=== PATIENT | male | born 1935 | race Caucasian/White ===

== ENCOUNTER 2016-10-09 09:55 | Inpatient (IN) | payer MEDICARE ==
--- NOTE | 2016-10-04 12:26 | PCM.ANEPRE ---
Anesthesia Pre-Op Review Reason for Review: Cardiac concerns, Hx JOSH does not use C-PAP Anesthesia Recommendations: Proceed with Procedure Additional Comments Patient with history of CAD/ s/p CABG/AVR. Also chronic atrial fibrillation with pacemaker. Patient is reportedly positive for JOSH but declines CPAP. Patient underwent echo on 09/05/2016: LVEF = 45-50%, moderated AI but well place bioprosthetic valve in the aortic position. He has been seen and cleared for surgery by his psychodramatist Dr. Simon. Okay to proceed pending evaluation on day of surgery. Chart Reviewed by: Gabriel Mack MD Oct 04, 2016 12:26
[~2016-10-09] VITALS: Ht 180.3 cm; Wt 77.1 kg
[2016-10-09] VITALS (12 sets, daily range): BP systolic 143–176; BP diastolic 64–96; PULSE 60–62; RESP 14–18; O2SAT 95–100
[~2016-10-09 09:55] MED LIST: ACET-2605 PO; ASPI325T32 PO; ATOR20TA PO; Acetaminophen IV 1,000 MG in IV Premix 1 EACH IV ONE; Bupivacaine Liposome 1.3% 20 mL Inj INFILTRATE ONE; CeFAZolin Inj 2 GM in IV Premix 1 EACH IV SCH; DIGO250T72 PO; Gentamicin 40 mg/mL 2 mL Inj INJ ONE; Hip/Knee Infiltration Cocktail INFILTRATE ONE; Lactated Ringer's 1,000 ML IV SCH; METO50TA3 PO; Tranexamic Acid 100 mg/mL 10 mL Inj IV SCH; WARF5TAB7 PO; WARF7.5T4 PO; [UNRECOGNIZED DRUG - REMARK] XX ONE
[2016-10-09] MEDS ORDERED: Lactated Ringer's 1,000 ML IV ONE (10:47)
[2016-10-09 11:00] LABS: INR 1.14 ratio
[2016-10-09] MEDS ORDERED: Bupivacaine Liposome 1.3% 20 mL Inj ONE (11:58)
[2016-10-09] MEDS ORDERED: 0.9% Sodium Chloride 100 ML ONE ×2 (11:58→11:59)
[2016-10-09] MEDS ORDERED: Tranexamic Acid 100 mg/mL 10 mL Inj IV SCH (12:29)
--- NOTE | 2016-10-09 12:32 | PCM.HPANE ---
Patient Data Surgeon Admitting Provider: Attending Provider:Toni Kahn MD Primary Care Physician:Hanh Van MD Other Provider:Ede Linares Anesthesia Reason for Visit Left Shoulder Arthritis Ht/WT & BMI Height (Feet): 5 Height (Inches): 11 Weight (Kilograms): 78.1 Body Mass Index 24.00 Allergies Coded Allergies: No Known Allergies (Unverified , 10/04/16) Past Anesthesia History Anesthesia History: Positive for:: Anesthesia Reactions (Nausea and dizzyness) , Denies:: Abnormal Airway, Difficult Intubation, Fam Anesthesia Reaction, Fam Malignant Hypertherm, Malignant Hyperthermia Diabetes History Hx Diabetes?: No MRSA MRSA: No Medications Blood Thinner: Aspirin and Coumadin Last Dose Blood Thinner: Oct 03, 2016 Hypertension Medication: Yes (Metoporolol) Home Meds Incl Beta Raul: Yes (metoprolol) Date Beta Raul Taken: Oct 09, 2016 Time Beta Raul Taken: 0600 Reported Medications Acetaminophen/Diphenhydramine (Tylenol Pm Ex-Strength Caplet)500 Mg-25 Mg Tablet1 Each PO 10/04/16 Warfarin Sodium 7.5 Mg Tablet7.5 Mg PO 30 Days Ref 0 10/04/16 Warfarin Sodium 5 Mg Tablet5 Mg PO DAILY 30 Days Ref 0 10/04/16 Metoprolol Tartrate 50 Mg [id number] Mg PO BID 30 Days Ref 0 10/04/16 Digoxin 250 Mcg [id number] Mcg PO DAILY #30 TABLET Ref 0 10/04/16 Atorvastatin (Lipitor)20 Mg [id number] Mg PO DAILY Ref 0 10/04/16 Aspirin 325 Mg [id number] Mg PO #1 BOTTLE 10/04/16 History History of ENT Problems?: No HEENT History: Positive for:: Hearing Problem (Speak loud and look him face) Denies:: Abnormal Airway Cataracts Difficult Intubation Dysphagia Glaucoma Sinus Problem TMJ Denture Type: None Teeth Condition: Within Normal Limits Hx of Heart Problems?: Yes Cardiovascular History: Positive for:: Atrial Fibrillation Cardiac Surgery (S/P CABG x 1 02/2010) Chest Pain Coronary Artery Disease Heart Murmur Irregular Heartbeat Valvular Heart Disease Denies:: AICD Abdominal Aortic Aneurism Congestive Heart Failure Edema Hypertension Pacemaker Peripheral Vascular Rheumatic Fever Thrombophlebitis Hx of Respiratory Problem?: Yes Respiratory History: Positive for:: Chest Surgery Denies:: Asthma COPD Cough Dyspnea Emphysema Hemoptysis Oxygen Administration Pneumonia Pulmonary Embolism Tuberculosis Use of C-PAP Machine (stopped using 2013 pt did not think he needed it) Use of Inhalers / NEBS Hx Neurologic Problems?: Yes Neurological History: Positive for:: Dizziness Headaches (continual headache started 03/06/2003) Denies:: Alzheimer's Disease CVA Dementia Multiple Sclerosis Parkinson's Disease Peripheral Neuropathy Seizures TIA Hx of GI Problems?: No Gastrointestinal History: Denies:: Cirrhosis Diverticulitis Gall Bladder Disease Gastroesphageal Reflux Gastrointestinal Bleeding Heartburn Hepatitis Hiatal Hernia Liver Disease Rectal Bleeding Hx of Problems?: No Genitourinary History: Denies:: HX of Hemodialysis Kidney Stones Urinary Tract Infection HX of Peritoneal Dialysis: No Other Pertinent History: History of bladder cancer treated with Myotmycin Male Hx: Denies:: Prostate Problems Scrotal Mass Testicular Surgery Skin History: Denies:: History Skin Disorders? Pressure Ulcers Hx Musculoskeletal Problems?: Yes Musculoskeletal History: Positive for:: Back Injury (C3-6 "trimmed", low back 2000) Osteoarthritis Denies:: Degenerative Joint Fibromyalgia Joint Replacement Musculoskeletal Trauma Myasthenia Gravis Rheumatoid Arthritis Systemic Lupus Hx of Psycho/Social Problems?: No Psycho Social History: Denies:: Anxiety Bipolar Disorder Hx Depression Suicide Attempt Hx Surgeries?: Yes (August 23, cysto) Other History: Positive for:: Cancer (Hx of Bladder) Hospitalization (August 2015) Denies:: Endocrine Disease Thyroid Disease History Blood Transfusions: Positive for:: Accept Blood Products? Denies:: Blood Transfusions Hx Diabetes: No Hx Alcohol Use: NoHx Substance Use: No Stop/Bang S-Snoring: Do You Snore Loudly: No T-Tired: feel tired, fatigued: Yes O-Obsered: Observed not breath: No P-Blood Pressure: treated: No B- Body Mass Index > 35 kg/m2: No A- Age over 50: Yes N- Neck Large Circumference: No G- Gender Male: Yes JOSH Total Score: 3 Risk Assessment Category Category 1A: Patient has history of documented sleep apnea, and HAS NOT received any narcotic, sedative or anesthesia administration during this stay. Category 1B: Patient has history of documented sleep apnea, and HAS received any narcotic , sedative or anesthesia administration during this stay Category 2: Patient has SUSPECTED Obstructive Sleep Apnea, and HAS received any narcotic , sedative or anesthesia administration during this stay. Category 3: Patient has SUSPECTED Obstructive Sleep Apnea and HAS NOT received narcotic, sedative or anesthesia administration during this stay. Category 4: Outpatient in Procedural Areas with known sleep apnea or who screen positive for High Risk via the STOP/BANG questionnaire. Exam Exam Vital Signs Vital Signs Date Time Temp Pulse Resp B/P Pulse Ox O2 Delivery O2 Flow Rate FiO2 10/09/16 10:48 36.5 60 18 161/86 99 Room Air General Appearance: Alert, Oriented X3, Cooperative, No Acute Distress HEENT/AIRWAY: MP 2, Neck Movement (decreased neck mobility from C3-C6 surgery) , Mouth Opening (3 FBMO) Lungs: Clear to Auscultation, Normal Air Movement Heart: Other (paced, A fib) Meds/Labs/Diagnostics Admission Meds Current Medications Lactated Ringer's (Lr) 1,000 ml @ ud STK-MED ONCE IV Last administered on t 10:47; Start 10/09/16 at 10:47; Stop 10/09/16 at 10:48; Status DC Labs Test 10/09/16 10:30 Plan Impression Patient chart reviewed, patient interviewed and anesthestic plan with risks, benefits, and alternatives discussed, and informed consent obtained. NPO per Anesth. Guidelines: Yes ASA Physical Status: ASA3 Severe Disease (CAD/ A fib) Anesthetic Plan: GA, Regional Block (Left shoulder block for postoperative pain control ) Bene/Risks/Altern/Consents: Yes HP Complete Prior to Induction: Yes Matt Bobo MD Oct 09, 2016 10:59
[2016-10-09] MEDS ORDERED: Gentamicin 40 mg/mL 2 mL Inj INJ ONE (13:09)
[2016-10-09] MEDS ORDERED: Bacitracin 50,000 unit Inj IRRIGATION ONE ×2 (13:12→14:57)
[2016-10-09] MEDS ORDERED: Lactated Ringer's 1,000 ML IV SCH (13:22)
[2016-10-09] MEDS ORDERED: Lactated Ringer's 500 ML IV PRN (13:22)
[2016-10-09] MEDS ORDERED: Phenylephrine 10,000 mCg/mL Inj IVPUSH PRN (13:25)
[2016-10-09] MEDS ORDERED: fentaNYL-PF 50 mCg/mL 2 mL Inj IVPUSH PRN (13:25)
[2016-10-09] MEDS ORDERED: Dexamethasone 4 mg/mL Inj IVPUSH PRN (13:25)
[2016-10-09] MEDS ORDERED: Labetalol 5 mg/mL 4 mL Inj IV PRN (13:25)
[2016-10-09] MEDS ORDERED: MetoCLOpramide 5 mg/mL 2 mL Inj IVPUSH PRN (13:25)
[2016-10-09] MEDS ORDERED: Ondansetron 2 mg/mL 2 mL Inj IVPUSH PRN ×2 (13:25→15:50)
[2016-10-09] MEDS ORDERED: EPHEDrine Sulfate 50 mg/mL Inj IVPUSH PRN (13:25)
[2016-10-09] MEDS ORDERED: HYDROmorphone 1 mg/mL Inj IVPUSH PRN (13:25)
[2016-10-09] MEDS ORDERED: Tranexamic Acid 100 mg/mL 10 mL Inj TOPICAL ONE (14:53)
--- NOTE | 2016-10-09 15:47 | PCM.ANEP1 ---
Post Anesthesia PACU Phase 1 Assessment Vital Signs Vital Signs Date Time Temp Pulse Resp B/P Pulse Ox O2 Delivery O2 Flow Rate FiO2 10/09/16 10:48 36.5 60 18 161/86 99 Room Air Anesthetic Administered: GA, Regional Block Level of Alertness: Sleeping, hard to arouse FORREST's with Equal Strength: Yes Pain: No Nausea or Vomiting: No CV Function & Hydration Stable: Yes Airway Device: Oxygen Delivery: Simple Mask Lungs: Clear to Auscultation, Normal Air Movement PACU Phase 2 Assessment Patient Instructions Provided: Yes Rasta Warner MD Oct 09, 2016 15:47
[2016-10-09] MEDS ORDERED: Polyethylene Glycol (PEG) 17 Gm Powder PO PRN (15:50)
[2016-10-09] MEDS ORDERED: Magnesium Hydroxide 10 mL Oral Concentration PO PRN (15:50)
[2016-10-09] MEDS ORDERED: diphenhydrAMINE 25 mg Capsule PO PRN (15:50)
[2016-10-09] MEDS ORDERED: Sodium Biphos-Phos 133 mL Enema RECTAL PRN (15:50)
[2016-10-09] MEDS: Sodium Chloride LOK Flush 10 mL Syringe IV SCH (16:30)
--- NOTE | 2016-10-09 16:54 | DRSVH ---
PROCEDURE: X-RAY LEFT SHOULDER, MINIMUM TWO VIEWS ([id number]) INDICATIONS: post op TECHNIQUE: 2 views of the shoulder were acquired. COMPARISON: 07/09/2016 FINDINGS: Bones: Postoperative changes since last exam include total shoulder arthroplasty with components in e xpected alignment. Soft tissues: No suspicious soft tissue calcifications. Sling artifacts are present. IMPRESSION: Acute postoperative changes total left shoulder arthroplasty Dictated by: Francesco Manuel M.D. on 10/09/2016 at 16:50 Approved by: Francesco Manuel M.D. on 10/09/2016 at 16:51
--- NOTE | 2016-10-09 17:07 | PCM.ORTHOP ---
Orthopedic Operative Report Date of Service: Oct 09, 2016 Pre Operative Diagnosis Left shoulder rotator cuff arthropathy Post Operative Diagnosis Same Procedure Left reverse total shoulder arthroplasty, open biceps tenodesis Surgeon Surgeon: Toni Kahn MD Assistants: Vikram Ridley Indication for Procedure Left shoulder rotator cuff arthropathy Findings Per dictation Details of Procedure Implant:[employer] Reverse fracture system:12 CaP coated humeral stem, large glenoid baseplate,. 42+2 humeral insert, size 42+4 glenosphere, central non-locking screw size 6.5X35 mm, peripheral locking screw 30 mm, peripheral nonlocking screw 4.5X36mm Patient Status: Patient was extubated and taken to recovery room in stable condition. Indications: Anton Fallon is an 80 year old male with shoulder pain with rotator cuff arthropathy and glenohumeral arthritis. The patient was offered conservative treatments versus surgical intervention given the severity of the injury and the patient opted for surgery. A clear explanation was given to the patient regarding the condition present, and the available conservative and surgical options. It was emphasized that the risks and benefits of surgery include but are not limited to infection, wound healing problems, damage to adjacent structures such as nerves, blood vessels and tendons, terminal press operator disability and pain, arthritis, hypersensitivity, deep vein thrombosis, pulmonary embolism, broken hardware, failure of surgery, need for further procedures at time of surgery or later, cast related problems, loss of limb or life. The patient was given an explanation and the patient voiced understanding of what to expect after the procedure or surgery, the limitations in activities of daily living, the likely duration for post operative recovery and the instructions that are to be followed. At the end the patient was invited to seek clarification or ask further questions but there were none. The patient voiced understanding of the entire consultation. Description of Procedure: Patient was taken to operating room and transferred to operating table in supine position. Time out was performed with both anesthesia and orthopaedics faculty present to confirm details of case to be performed. After time out performed, patient placed under general anesthesia and endotracheal tube secured into place. Once endotracheal tube secured, the patient was placed into the modified beach-chair position at about 40 degrees of flexion. Patient position was again checked to ensure all bony prominences adequately padded. The left arm was prepped and draped in the usual sterile fashion to the level of the neck. A standard deltopectoral incision was made beginning immediately above the coracoid process and extending distally and laterally. The deltoid muscle was split through the interval being carefully not to release any deltoid along the clavicle or humerus. The proximal one-third of the pectoralis major muscle was incised off the humerus for better exposure. The supraspinatus and infraspinatus muscles were intact and still attached to the fractured greater tuberosity. The subscapularis was intact and also still attached to the fractured lesser tuberosity. It was incised through the tendinous portion just medial to the lesser tuberosity and tagged with 2-0 Fiberwire. The arm was externally rotated to expose the humeral head while the anterior humeral circumflex vessels ("3 sisters") were identified, ligated and then cut protecting the axillary nerve throughout inferior and medial to the vessels. The long head of the biceps was identified along the bicipital groove, incised at its origin and tagged for later tenodesis to the pectoralis major A barge pilot hole was then made with a 4 mm drill through the humeral head along the axis of the humeral shaft just lateral to the head's articular surface and just posterior to the bicipital groove. The 6 mm trochar pointed reamer was then inserted with continued circumferential reaming in 1 mm increments until light cortical contact was achieved with the appropriately sized reamer. The intramedullary resection guide was assembled and the version control alex was placed to allow for 30 degrees retroversion. The neck cut was verified with a bat wing. Two threaded Steinmann pins were placed in the resection guide to secure the block to bone and the reamer and guide boom were removed prior to resecting the humeral head with the oscillating saw. We started broaching with the 8 mm broach and ended with the 12 mm broach which solidly fit in the canal and fully seated on the humerus. The broach cover was then used to protect the humerus while attention was turned to the glenoid. Any remaining labrum was removed from the glenoid along with surrounding osteophytes. The glenoid sizer was centered on the glenoid and a 3.2 mm Steinmann pin was inserted with a 10 degree inferior tilt with solid bone purchase. The glenoid was then reamed with the cannulated base plate reamer over the top of the Steinmann pin until a small bone shelf was evident circumferentially. The cannulated trial glenoid baseplate was placed and fully seated. The glenoid baseplate implant was impacted and fully seated. The 6.5 mm central screw was then inserted following removal of the Steinmann with good compression. The surrounding peripheral screw was then drilled with a 2.7 mm drill through the threaded locking guides and then placed. A nonlocking screw was inserted inferiorly and placed first. The glenosphere trial was placed and tested with a good fit. The glenosphere implant was then tamped in place with appropriate offset. The standard humeral tray/bearing were placed and a trial reduction was performed. The patient achieved 80 degrees of external/internal rotation, 110 degrees of abduction, 45 degrees extension and 120 degrees of forward flexion with complete stability. The trail components were removed and the wound was copiously irrigated with 3 liters of normal saline. The stem was inserted followed by impaction of the humeral tray/bearing. The implant was reduced and once again range of motion was found to be 80 degrees of external/ internal rotation, 110 degrees of abduction, 45 degrees extension and 120 degrees of forward flexion with complete stability. The wound was again irrigated. The subscapularis was repaired with drill holes in the humerus prior to implantation of the stem with #2 Fiberwire through previously made bone tunnels. The long head of biceps was tenodesed to the pectoralis major. The deltoid interval was closed with 0 vicryl followed by 2-0 vicryl subcutaneous closure and then monocryl stitches for the skin. Transexamic acid was administered and a local anesthetic cocktail into the skin. Sterile dressings were applied along with a shoulder immobilizer and abduction pillow. The patient was then awoken from anesthesia and extubated, his neurovascular status was intact when checked in PACU. Pt tolerated procedure well and there was no complications. SPORTS MANAGEMENT INTERN SURGEON: During the operation, the services of physician surgical orderly were medically indicated and necessary to provide exposure of the operative site for the surgical procedure and to maintain the limb in a proper position to carry out the operation safely and efficiently. Without the qualified bar assistant being present, it would have extended the operative procedure and made the procedure technically more difficult to perform. Nonweightbearing to affected upper extremity. Please leave sling on at all times. You may remove sling 3 times a day to move the elbow wrist and fingers. Do not move your shoulder. PROM only, IR to body, ER to 0 degrees, FF to 90 degrees, ABD to 0 degrees. Keep your arm at neutral, NO external rotation of the arm, no resisted IR of the arm. Please keep the affected extremity elevated when possible. You may use ice and/or heat as needed for comfort. Follow-up in 2 weeks with me with 2-view xrays and for suture removal and Steri -Strip application. Follow-up with me at 6 weeks. You will have pain medications , medication for constipation and aspirin 81 qdaily X 2 weeks. Grafts, Implants: Implants-See Implant Record Complications There were no periprocedural complications identified. Condition Stable Anesthetic Administered: GA, Regional Block Catheters: None Output, Estimated Blood Loss: 100 Blood Admin during surgery: No Surgical Cast or Splint: Other Surgical Specimen Removed: No Specimen sent to Pathology: No copies to: Toni Kahn MD, Christopher L MD Oct 09, 2016 17:07
[2016-10-09] MEDS ORDERED: Dexamethasone 4 mg/mL Inj ONE (17:34)
[2016-10-09] MEDS ORDERED: Rocuronium 10 mg/mL 5 mL Inj ONE (17:34)
[2016-10-09] MEDS ORDERED: Ondansetron 2 mg/mL 2 mL Inj ONE (17:34)
[2016-10-09] MEDS ORDERED: Propofol 10,000 mCg/mL 20 mL Inj ONE (17:34)
[2016-10-09] MEDS ORDERED: Ketamine 10 mg/mL 20 mL Inj ONE (17:34)
[2016-10-09] MEDS ORDERED: fentaNYL-PF 50 mCg/mL 2 mL Inj ONE (17:34)
[2016-10-09] MEDS ORDERED: Phenylephrine/NS 100 mCg/mL 10 mL Syringe IVPUSH ONE (17:34)
[2016-10-09] MEDS: 0.9% Sodium Chloride 1,000 ML IV SCH (17:52)
[2016-10-09] MEDS: Senna-Docusate 8.6-50 mg Tablet PO SCH (20:02)
[2016-10-09] MEDS: CeFAZolin Inj 2 GM in IV Premix 1 EACH IV SCH (20:07)
[2016-10-10 00:21] VITALS: BP 155/79; PULSE 65; RESP 17; O2SAT 98
[2016-10-10] MEDS: Sodium Chloride LOK Flush 10 mL Syringe IV SCH ×2 (00:30→08:29)
[2016-10-10] MEDS: 0.9% Sodium Chloride 1,000 ML IV SCH ×2 (05:20→11:46)
[2016-10-10] MEDS: CeFAZolin Inj 2 GM in IV Premix 1 EACH IV SCH (05:27)
[2016-10-10 05:30] VITALS: BP 142/74; PULSE 62; RESP 17; O2SAT 96
[2016-10-10 05:34] LABS: BASOPHILS % (AUTO) 0.1 % (0-3); EOSINOPHILS % (AUTO) 0 % (0-5); MONOCYTES % (AUTO) 9.1 % (4-12); Mean Corpuscular Hemoglobin 30.2 pg (27.0-35.0); Mean Corpuscular Volume 90.7 fL (81-100); NEUTROPHILS % (AUTO) 82.3 % (40-74); Platelet Count 184 bil/L (150-400)
[2016-10-10] MEDS: HYDROcodone-APAP 5-325 mg Tablet PO PRN ×2 (06:10→10:25)
[2016-10-10 07:49] VITALS: BP 104/65; PULSE 60; RESP 18; O2SAT 97
[2016-10-10] MEDS: Senna-Docusate 8.6-50 mg Tablet PO SCH (08:34)
[2016-10-10 08:36] VITALS: PULSE 62
--- NOTE | 2016-10-10 11:09 | PCM.PNORTH ---
Subjective Date of Service: Oct 10, 2016 Visit Information: Reason for Visit Left Shoulder Arthritis Surgery/Surgery Date left reverse total shoulder arthroplasty 10/09/2016 Post-Op Day # 1 Date of Admission: Oct 09, 2016 at 17:33 Hospital Day # Subjective Patient has minimal complaints of pain. He has been seen by OT and understands how to don and doff the sling. His is at bedside. Objective Exam Objective Patient is seen sitting up in bed Vital Signs and I/O Vital Sign - Last Date Time Temp Pulse Resp B/P Pulse Ox O2 Delivery O2 Flow Rate FiO2 10/10/16 08:36 62 10/10/16 07:49 36.8 18 104/65 97 Room Air 10/09/16 15:55 10 Intake and Output 10/09/16 10/09/16 10/10/16 Cumulative From/Thru 15:00 23:00 07:00 10/04/16 10:31 - 10/10/16 05:30 Intake Total 1100 ml 850 ml 1751 ml 3701 ml Output Total 100 ml 350 ml 350 ml 800 ml Balance 1000 ml 500 ml 1401 ml 2901 ml Intake Oral 0 ml 650 ml 650 ml IV Total 1100 ml 850 ml 1101 ml 3051 ml Output Urine Total 350 ml 350 ml 700 ml Estimated Blood Loss 100 ml 100 ml # Bowel Movements 0 0 Lab & Micro Results Laboratory Tests Test 10/10/16 05:15 White Blood Count 10.7th/mm3 (3.8-10.1) Red Blood Count 3.98mil/mm3 (4.40-5.80) Hemoglobin 12.0g/dL (13.8-17.2) Hematocrit 36.1% (41.0-50.0) Mean Corpuscular Volume 90.7fL (81-100) Mean Corpuscular Hemoglobin 30.2pg (27.0-35.0) Mean Corpuscular Hemoglobin Concent 33.2% (32.0-37.0) Red Cell Distribution Width 13.9% (12.3-15.4) Platelet Count 184bil/L (150-400) Neutrophils (%) (Auto) 82.3% (40-74) Lymphocytes (%) (Auto) 8.3% (14-46) Monocytes (%) (Auto) 9.1% (4-12) Eosinophils (%) (Auto) 0% (0-5) Basophils (%) (Auto) 0.1% (0-3) Result Diagram: 10/10/16 0515 General Appearance: Alert, Oriented X3, Cooperative, No Acute Distress Extremities: Distal Pulses Palpable Postop Sensory Motor: Distal Motor Intact, Movement in Fingers, Distal Sensation Intact, NVI Distally SURGICAL WOUND : Wound Location/Description Left shoulder: Surgical dressing is clean, dry and intact. No drainage or erythema seen. Catheters: None Assessment & Plan Impression POD #1 left reverse total shoulder arthroplasty Problems: Plan The patient has been seen by occupational therapy and understands how to don and doff the brace. Patient will be discharged home today. Discharge instructions reviewed with the patient Discharged home in stable condition Resume warfarin and aspirin tomorrow. Pain medicine: [place] [hydrocodone/acetaminophen], Activity: Nonweightbearing to affected upper extremity. Please leave sling on at all times. You may remove sling 3 times a day to move the elbow wrist and fingers. No lifting, carrying, pushing, pulling or leaning on the left arm. Do not move your shoulder. NO external rotation of the arm, no resisted IR of the arm. Please keep the affected extremity elevated when possible. You may use ice and/or heat as needed for comfort. Dressing: remove surgical dressing in 3 days, and change with long bandage. Showering: During first week after surgery, cover the wound with plastic to shower. After one week, may shower with the wound uncovered. Change the dressing every 2-3 days or as needed. Follow-up with Dr. Kahn in 2 weeks with x-rays, and at 6 weeks Pain Management: [place] Resuscitation Status: CPR: Attempt Resuscitation SikesHeydi huff PA-C Oct 10, 2016 11:09
--- NOTE | 2016-10-10 11:59 | PCM.DIOPOR ---
OP Ortho Discharge Instruction Dates of Hospitalization Date of Discharge: Oct 10, 2016 Providers Admitting Physician: Toni Kahn MD Primary Care Physician: Hanh Van MD Attending Physician: Toni Kahn MD Diagnosis at Time of Discharge Post operative diagnosis Status post left reverse total shoulder arthroplasty Diet Discharge Diet: No restrictions Activity Activity-General: Elevate & ice extremity Left Upper Extremity: Non-weight bearing Range of motion restrictions: No active motion of left shoulder. Discharge Assist Device: Shoulder Immobilizer Dressing and Incisional Care Dressing Care: Keep dressing clean, dry & intact Hygiene: May shower (see instructions below), DO NOT soak incision under water , NO bathtub, hot tub or whirlpool Additional Instructions Discharge Instructions Dressing: remove surgical dressing in 3 days, and change with long bandage. Change the dressing every 2-3 days or as needed. Showering: During first week after surgery, cover the wound with plastic to shower. After one week, may shower with the wound uncovered. Resume warfarin and aspirin tomorrow. Pain medicine: [place] [hydrocodone/acetaminophen] To prevent constipation, use MiraLax [polyethylene glycol] daily. Start taking it today, once a day in a large glass of water or juice. Use stool softener or laxative if needed. Prune juice is also helpful. Activity: Nonweightbearing to affected upper extremity. Please leave sling on at all times. You may remove sling 3 times a day to move the elbow wrist and fingers. No lifting, carrying, pushing, pulling or leaning on the left arm. Do not move your shoulder. NO external rotation of the arm, no resisted IR of the arm. Please keep the affected extremity elevated when possible. You may use ice and/or heat as needed for comfort. Follow Up Plan Follow Up Plan Follow-up with Dr. Kahn in 2 weeks with x-rays, and at 6 weeks Call your provider for: Fever, Chills, Shortness of breath, Vomitting, Drainage at incision, Wound redness (that is psreading) Heydi Zamora PA-C Oct 10, 2016 11:59
[2016-10-10] MEDS ORDERED: HYDR-4003 PO (12:00)
[2016-10-10] MEDS ORDERED: DOCU-41 PO (12:00)
--- NOTE | 2016-10-14 16:51 | PCM.DC.ORT ---
Discharge Summary Date of Service: Oct 14, 2016 Date of Hospital Admission: Oct 09, 2016 at 17:33 Date of Surgery: Oct 09, 2016 Date of Discharge: Oct 10, 2016 Reason for Hospitalization: Left shoulder arthritis Procedures Performed: Left shoulder reverse total arthroplasty Hospital Course: The patient was admitted to the hospital on 10/09/2016 and underwent the above procedure. The surgeon was Dr. Kahn. Patient tolerated the procedure well was transferred in stable condition. The patient was then [place] [facility] [place]. Pain is managed with [place] 7.5/325 mg. The patient fell to 7.5 mg dose was too high and asked that it be cut back a little bit to 5 mg tablets. Patient was seen by occupational therapy in the morning and instructed him how to don and doff the brace. Discharge instructions were reviewed. Patient had no chest pain, shortness of breath or pain management issues. He is discharged home in stable condition. Diagnosis at Time of Discharge Status post left reverse total shoulder arthroplasty Problems: Disposition: Discharged home in stable condition Additional Information Follow-up in 2 weeks at [facility] with Dr. Kahn, and at 6 weeks Discharge Instructions: Activity-General: Elevate & ice extremity Left Upper Extremity: Non-weight bearing Range of motion restrictions: No active motion of left shoulder. Discharge Assist Device: Shoulder Immobilizer Dressing Care: Keep dressing clean, dry & intact Hygiene: May shower (see instructions below), DO NOT soak incision under water , NO bathtub, hot tub or whirlpool Dressing: remove surgical dressing in 3 days, and change with long bandage. Change the dressing every 2-3 days or as needed. Showering: During first week after surgery, cover the wound with plastic to shower. After one week, may shower with the wound uncovered. Resume warfarin and aspirin tomorrow. Pain medicine: [place] [hydrocodone/acetaminophen] To prevent constipation, use MiraLax [polyethylene glycol] daily. Start taking it today, once a day in a large glass of water or juice. Use stool softener or laxative if needed. Prune juice is also helpful. Activity: Nonweightbearing to affected upper extremity. Please leave sling on at all times. You may remove sling 3 times a day to move the elbow wrist and fingers. No lifting, carrying, pushing, pulling or leaning on the left arm. Do not move your shoulder. NO external rotation of the arm, no resisted IR of the arm. Please keep the affected extremity elevated when possible. You may use ice and/or heat as needed for comfort. Acetaminophen/Diphenhydramine (Tylenol Pm Ex-Strength Caplet) 500 Mg-25 Mg Tablet 1 EACH PO Aspirin (Aspirin) 325 Mg Tablet 325 MG PO Atorvastatin (Lipitor) 20 Mg Tablet 20 MG PO DAILY Digoxin (Digoxin) 250 Mcg Tablet 250 MCG PO DAILY Docusate Sodium (Colace) 100 Mg Capsule 100 MG PO BID PRN PRN For Constipation Hydrocodone-Acetaminophen 5-325 mg (Hydrocodone-Acetaminophen 5-325 mg) 1 Each Tablet 1-2 TABLET PO Q4H PRN PRN For Moderate Pain Metoprolol Tartrate (Metoprolol Tartrate) 50 Mg Tablet 50 MG PO BID Warfarin Sodium (Warfarin Sodium) 5 Mg Tablet 5 MG PO DAILY Warfarin Sodium (Warfarin Sodium) 7.5 Mg Tablet 7.5 MG PO Heydi Zamora PA-C Oct 14, 2016 16:51
== END 2016-10-10 12:37 | disposition home or self-care (01) | DRG 483 ==
LOC: SAS 09:55 → OSC 17:33
PROVIDERS: ADMIT Orthopaedic Surgery; ATTEND Orthopaedic Surgery
PROC: 0RRK00Z Replacement of Left Shoulder Joint with Reverse Ball and Socket Synthetic Substitute, Open Approach (ICD-10-PCS; principal; 2016-10-09 09:45)
DX: M19.012 Primary osteoarthritis, left shoulder (principal); I50.22 Chronic systolic (congestive) heart failure; I48.2 Chronic atrial fibrillation; Z79.01 Long term (current) use of anticoagulants; Z95.0 Presence of cardiac pacemaker; I25.10 Atherosclerotic heart disease of native coronary artery without angina pectoris; M75.122 Complete rotator cuff tear or rupture of left shoulder, not specified as traumatic

== ENCOUNTER 2016-10-15 07:25 | Emergency (ER) | payer MEDICARE ==
[~2016-10-15] VITALS: Ht 180.3 cm; Wt 81.8 kg
[~2016-10-15 07:25] MED LIST changes: -Acetaminophen IV 1,000 MG in IV Premix 1 EACH IV ONE; -Bupivacaine Liposome 1.3% 20 mL Inj INFILTRATE ONE; -CeFAZolin Inj 2 GM in IV Premix 1 EACH IV SCH; +DOCU-41 PO; -Gentamicin 40 mg/mL 2 mL Inj INJ ONE; +HYDR-4003 PO; -Hip/Knee Infiltration Cocktail INFILTRATE ONE; -Lactated Ringer's 1,000 ML IV SCH; -Tranexamic Acid 100 mg/mL 10 mL Inj IV SCH; -[UNRECOGNIZED DRUG - REMARK] XX ONE
--- NOTE | 2016-10-15 07:28 | ED.REPORT ---
HPI-General Illness Date of Service Oct 15, 2016 ED Provider: Spencer Li Patient is an 80 year old male with a hx of afib, cancer, and valvular heart disease on Warfarin who presents to the ED s/p a shoulder reconstruction 6 days ago complaining of SOB. He reports that he developed the hiccups which progressed to SOB onset this morning. Associated symptoms include constipation. He denies cough, sputum, chest pain, vomiting, diarrhea, or any other symptoms. He has restarted warfarin since the surgery. He also takes Digoxin and metoprolol. Nursing Notes Stated Complaint: DIFFICULTY BREATHING Nursing Notes Reviewed: Yes Allergies: Coded Allergies: No Known Allergies (Unverified , 10/04/16) Scheduled Atorvastatin (Lipitor) 20 Mg Tablet 20 MG PO DAILY Digoxin (Digoxin) 250 Mcg Tablet 250 MCG PO DAILY Metoprolol Tartrate (Metoprolol Tartrate) 50 Mg Tablet 50 MG PO BID Warfarin Sodium (Warfarin Sodium) 5 Mg Tablet 5 MG PO DAILY Scheduled PRN Docusate Sodium (Colace) 100 Mg Capsule 100 MG PO BID PRN PRN For Constipation Hydrocodone-Acetaminophen 5-325 mg (Hydrocodone-Acetaminophen 5-325 mg) 1 Each Tablet 1-2 TABLET PO Q4H PRN PRN For Moderate Pain Prochlorperazine Maleate (Compazine) 5 Mg Tablet 5-10 MG PO QID PRN PRN For Hiccups Miscellaneous Medications Acetaminophen/Diphenhydramine (Tylenol Pm Ex-Strength Caplet) 500 Mg-25 Mg Tablet 1 EACH PO Aspirin (Aspirin) 325 Mg Tablet 325 MG PO Warfarin Sodium (Warfarin Sodium) 7.5 Mg Tablet 7.5 MG PO General Time Seen by MD: 07:27 Chief Complaint Breathing problem Hx Obtained From: Patient, Spouse Arrived By: Walk-in Sudden in Onset?: Yes Onset Occurred: 1 - 4 hours ago Symptom Duration: Since onset Recent Healthcare: Previous surgery Past Medical History Past Medical History Afib bladder cancer valvular heart disease Past Surgical History L shoulder reconstruction CABG c3-6 "trimmed" Reports: Pacemaker insertion Smoking History Former Smoker Social History Other Social History: Good social support, Ambulatory Status Independent Review of Systems Full Review of Systems Respiratory: Reports: Shortness of breath, Denies: Non-productive cough, Prod cough, yellow Cardiovascular: Denies: Chest pain GI: Reports: Constipation, Denies: Diarrhea, Vomiting Complete sys rev & neg: except as marked. Physical Exam Vital Signs Vital Signs Date Time Temp Pulse Resp B/P Pulse Ox O2 Delivery O2 Flow Rate FiO2 10/15/16 10:50 61 14 168/71 99 Room Air 10/15/16 09:17 61 17 149/67 99 Room Air 10/15/16 08:16 60 15 154/71 100 Room Air 10/15/16 07:30 36.6 65 20 180/147 100 Room Air Initial VS: Reviewed, Vital signs abnormal Head / Eyes: Atraumatic, Normocephalic Neck: Full range of motion Skin: Warm, Dry Neurologic: Alert, Oriented, Nonfocal Psychiatric: Mood/affect normal, Behavior normal, Normal thought content General/Constitutional: Awake, Alert Distress / Hydration: Positive: Distress mild Respiratory / Chest: Breath sounds NL, Breath sounds = bilat, No respiratory distress Hiccuping Abdomen: Atraumatic, Soft, Non-tender, No distention Upper Extremities Upper Extremity / MS: No deformity L arm in sling with bandage over the L shoulder. Bandage is clean, dry, and intact. Interpretation & Diagnostics Lab Results Interpretation Result Diagram: 10/15/16 0741 10/15/16 0741 Test 10/15/16 07:41 White Blood Count 9.2th/mm3 (3.8-10.1) Red Blood Count 4.38mil/mm3 (4.40-5.80) Hemoglobin 13.2g/dL (13.8-17.2) Hematocrit 40.0% (41.0-50.0) Mean Corpuscular Volume 91.3fL (81-100) Mean Corpuscular Hemoglobin 30.1pg (27.0-35.0) Mean Corpuscular Hemoglobin Concent 33.0% (32.0-37.0) Red Cell Distribution Width 13.8% (12.3-15.4) Platelet Count 275bil/L (150-400) Neutrophils (%) (Auto) 73.9% (40-74) Lymphocytes (%) (Auto) 12.2% (14-46) Monocytes (%) (Auto) 9.6% (4-12) Eosinophils (%) (Auto) 3.6% (0-5) Basophils (%) (Auto) 0.4% (0-3) Prothrombin Time 19.1sec (8.1-12.5) Prothromb Time International Ratio 1.76ratio Sodium Level 140mEq/L (134-144) Potassium Level 4.6mEq/L (3.5-5.2) Chloride Level 98mEq/L (97-108) Carbon Dioxide Level 26mmol/L (18-29) Blood Urea Nitrogen 17mg/dL (8-27) Creatinine 0.73mg/dL (0.76-1.27) Estimat Glomerular Filtration Rate 110mL/min (>59) Glucose Level 102mg/dL (60-99) Calcium Level 9.7mg/dL (8.5-10.1) Magnesium Level 2.5mg/dL (1.6-2.6) Total Bilirubin 1.2mg/dL (0.0-1.2) Aspartate Amino Transf (AST/SGOT) 131U/L (0-50) Alanine Aminotransferase (ALT/SGPT) 104U/L (0-44) Alkaline Phosphatase 105U/L (25-160) Total Protein 7.2g/dL (6.4-8.4) Albumin 4.1g/dL (3.4-5.0) Digoxin Level 1.5nG/mL (0.9-2.0) ECG Interpretation ECG Interpretation: afib/flutter and Paced rhythm with rate 60 Time: 08:16 Interpreted by: ED physician X-Ray Abdominal Interpretation IMPRESSION: 1. No acute cardiopulmonary disease. 2. Normal overall bowel gas pattern. Dictated by: Jaydon Braswell M.D. on 10/15/2016 at 9:08 Approved by: Jaydon Braswell M.D. on 10/15/2016 at 9:09 Interpretation / Wet Read by: Interpret - Radiologist US Focused Biliary No gall stones or cholecystitis Limited view of L kidney Exam Performed by: Allied health pract Re-Eval/Medical Decision Med Decision/Clinical Course Chief complaint is singultus and constipation. Labs are reassuring with the exception of mildly abnormal liver function tests of unclear significance. An ultrasound was performed as irritation of the diaphragm and abnormal liver function test may have been suggestive of cholecystitis however ultrasound is unremarkable. Acute abdominal series reveals a normal bowel gas pattern and a clear chest x-ray. Terms of constipation the patient is recommended to take MiraLAX twice daily. Compazine as prescribed for the singultus. This drug was chosen due to a lower side effect profile compared with Thorazine given his advanced age and comorbidities. Patient had significant improvement in his singultus after Compazine. Return and follow-up precautions given Time of Eval: 08:23 Re-Evaluation/Progress Note: Rechecked pt who reports that he has had poor oral hydration since his surgery. Discussed lab and imaging results. Time of Eval: 10:14 Re-Evaluation/Progress Note: Rechecked pt. Discussed US results. Time of Eval: 10:35 Re-Evaluation/Progress Note: Discussed plan for discharge. Patient understands and agrees with plan. All questions addressed at this time. Counseled Regarding: Diagnosis, Lab results, Need for follow-up, When/why to return to ED Discharge & Departure Primary Impression: Singultus Additional Impression: Constipation Constipation type: unspecified constipation type Qualified Code: K59.00 - Constipation, unspecified Disposition: Home Discharge Condition All VS Reviewed: Yes Condition: Stable Additional Instructions: Laboratory studies are reassuring, however you do have mild elevation of your liver function tests. There is no ultrasound evidence of a gallbladder problem today. You should follow-up with your primary care doctor regarding your abnormal liver function tests. Take Compazine 5-10 mg every 6 hours as needed for hiccups. Continue MiraLAX twice a day for constipation. Call your regular doctor for close follow-up appointment. Return to the ER as needed for severe trouble breathing, chest pain, altered mental status, or other concerns. Referrals: Hanh Van MD (PCP) Alisibe Attestation Portions of this note were transcribed by Savi Fuentes. I, Dr. Li personally performed the history, physical exam and medical decision-making; I reviewed and confirmed the accuracy of the information in the transcribed note. Signed by: Abel Victor, 10/15/16 copies to: Hanh Van MD, Timothy S DO Oct 15, 2016 07:28 SAVI FUENTES Oct 15, 2016 07:36
[2016-10-15 07:30] VITALS: BP 180/147; PULSE 65; RESP 20; O2SAT 100
[2016-10-15] MEDS ORDERED: MetoCLOpramide 5 mg/mL 2 mL Inj IVPUSH ONE ×2 (07:35→09:15)
[2016-10-15 08:16] VITALS: BP 154/71; PULSE 60; RESP 15; O2SAT 100
[2016-10-15] MEDS ORDERED: 0.9% Sodium Chloride 1,000 ML IV SCH (08:20)
[2016-10-15] MEDS ORDERED: 0.9% Sodium Chloride 250 ML IV ONE (08:25)
[2016-10-15 08:38] LABS: Mean Corpuscular Hemoglobin 30.1 pg (27.0-35.0); Mean Corpuscular Volume 91.3 fL (81-100)
[2016-10-15 08:39] LABS: NEUTROPHILS % (AUTO) 73.9 % (40-74); Platelet Count 275 bil/L (150-400)
[2016-10-15 08:40] LABS: BASOPHILS % (AUTO) 0.4 % (0-3); EOSINOPHILS % (AUTO) 3.6 % (0-5); MONOCYTES % (AUTO) 9.6 % (4-12)
[2016-10-15 08:56] LABS: Magnesium 2.5 mg/dL (1.6-2.6)
--- NOTE | 2016-10-15 09:11 | DRSVH ---
PROCEDURE: X-RAY ACUTE ABDOMINAL SERIES ([id number]) INDICATIONS: 80 year-old male with shortness of breath and constipation. TECHNIQUE: One view chest and two views of the abdomen were acquired. COMPARISON: None. FINDINGS: Surgical changes and devices: Patient is status post coronary artery bypass grafting. Right chest wal l dual chamber pacemaker is present. Patient is status post left shoulder arthroplasty as well. Chest: Lungs are clear. Heart size is normal. No pleural effusions. No pneumoperitoneum. Abdomen: Bowel gas pattern is normal, with scattered stool in the colon. No suspicious calcificatio ns. 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 Visualized solid organ contours appear normal. Bones: No suspicious bony lesions. There is mild bilateral hip joint degeneration. IMPRESSION: 1. No acute cardiopulmonary disease. 2. Normal overall bowel gas pattern. Dictated by: Jaydon Braswell M.D. on 10/15/2016 at 9:08 Approved by: Jaydon Braswell M.D. on 10/15/2016 at 9:09
[2016-10-15 09:17] VITALS: BP 149/67; PULSE 61; RESP 17; O2SAT 99
[2016-10-15 10:14] LABS: INR 1.76 ratio
[2016-10-15] MEDS ORDERED: PROC5TAB50 PO (10:33)
[2016-10-15 10:50] VITALS: BP 168/71; PULSE 61; RESP 14; O2SAT 99
--- NOTE | 2016-10-15 13:03 | DRSVH ---
PROCEDURE: US ABDOMEN INDICATIONS: persistent hiccups, abnl LFT TECHNIQUE: Real-time scanning was performed of the abdominal and retroperitoneal organs, with image documentatio n. COMPARISON: None. FINDINGS: Liver length: 14.2 cm Gallbladder Wall Thickness: 3 mm. CHD: 1.80 mm Spleen length: 9.9 cm Right kidney length: 9.5 cm Left kidney length: Not well-seen. Aorta(Proximal): 1.73 cm Aorta(Mid): 1.70 cm Aorta(Distal): 1.6 cm RCIA: 1.12 cm LCIA: 1.22 cm Liver: Liver is normal in size and homogeneous in echotexture. Gallbladder: No gallstones identified. Normal gallbladder wall. No pericholecystic fluid. Negativ e sonographic Cesar sign Biliary ducts: Intrahepatic bile ducts are non-dilated. Extrahepatic bile duct caliber is normal. Normal is 6-7 mm or less in diameter, or 10 mm or less post-cholecystectomy. Pancreas: Visualized portions of the pancreas are sonographically normal. Spleen: Spleen is normal in size and homogeneous in echotexture. Kidneys: Kidneys are normal in size and echotexture. No hydronephrosis or nephrolithiasis. No curly d masses. Aorta: Visualized aorta is normal in caliber at less than 3 cm. Iliacs: Proximal common iliac arteries are normal in caliber at less than 2.5 cm. IVC: Intrahepatic inferior vena cava is patent. Miscellaneous: No free abdominal fluid. IMPRESSION: Left kidney not well-seen otherwise normal exam. Dictated by: Scotty Hatfield [facility] Interpreted: Ever Friemdan MD on 10/15/2016 at 13:01 Transcribed by: TY on 10/15/2016 at 13:03 Approved by: Ever Friedman M.D. on 10/15/2016 at 21:57
== END 2016-10-15 10:52 | disposition home or self-care (01) ==
LOC: SED 07:25
DX: R06.6 Hiccough (principal); K59.00 Constipation, unspecified; Z87.891 Personal history of nicotine dependence; Z85.51 Personal history of malignant neoplasm of bladder; Z95.1 Presence of aortocoronary bypass graft
CPT/HCPCS: 36415; 74022; 76700; 80053; 80162; 83735; 85025; 85610; 93005; 96374; 96376; 99285; J2765; J7050